=== PATIENT | female | born 1980 | race Caucasian/White ===

== ENCOUNTER 2020-07-16 06:16 | Outpatient (REF) | payer OTHER, SELFPAY ==
[2020-07-16 12:00] LABS: Alanine Aminotransferase 38 U/L (0-31); Albumin Level 4.1 g/dL (3.5-5.0); Alkaline Phosphatase 83 U/L (39-117); Anion Gap 14 (12-20); Aspartate Amino Transferase 25 U/L (5-31); Bilirubin Total 0.5 mg/dL (0.0-1.0); Blood Urea Nitrogen 18 mg/dL (9-16); Calcium 8.2 mg/dL (8.4-10.2); Carbon Dioxide 22 mmol/L (22-29); Chloride 109 mmol/L (96-108); Cholesterol 182 mg/dL; Estimated Glomerular Filt Rate > 60; Glucose Fasting 83 mg/dL (60-99); HDL Cholesterol 46 mg/dL; LDL Cholesterol Calculated 115 mg/dl; Potassium 4.2 mmol/l (3.3-5.1); Sodium 141 mmol/L (135-145); Total Protein 6.8 g/dL (6.5-8.0); Triglycerides 109 mg/dL
[2020-07-16 12:05] LABS: TSH reflex Free T4 1.76 mIU/mL (0.32-4.0)
== END 2020-07-16 06:17 | disposition home or self-care (01) ==
LOC: HO.HMGCLDS 06:16
PROVIDERS: PCP Nurse Practitioner Family; Visit Provider Nurse Practitioner Family
DX: Z00.00 Encounter for general adult medical examination without abnormal findings (principal)
CPT/HCPCS: 80053; 80061; 84443

== ENCOUNTER 2020-07-28 09:28 | Emergency (ER) | payer OTHER, SELFPAY ==
--- NOTE | 2020-07-28 | XR_ITS ---
EXAMINATION: CR CHEST CLINICAL INFORMATION: Chest tightness. COMPARISON: Chest x-ray dated 09/22/2016. TECHNIQUE: AP upright portable view of the chest was obtained. FINDINGS: The cardiomediastinal silhouette is within normal limits in size. Lungs bilaterally are symmetrically expanded and demonstrate diffuse thickening of the central airways and perihilar reticular opacities, suggestive of reactive airways disease or bronchitis. No focal dense consolidation, effusion or pneumothorax is seen. Bony structures are unremarkable. XR/XR chest 1V IMPRESSION: Findings a suggestive of reactive airways disease or bronchitis. No focal dense pneumonia.
[2020-07-28 09:34] VITALS: BP 137/74; PULSE 96; RESP 18; TEMP 37.2; O2SAT 95; BMI 41.1
--- NOTE | 2020-07-28 10:37 | PC.NURSE ---
COVID POS. WALKING O2 SAT 98% ON ROOM AIR PT AWARE OF PLAN OF CARE FOR DC
--- NOTE | 2020-07-28 10:48 | ED_ITS ---
HPI - SOB/Dyspnea General Chief Complaint: Dyspnea Stated Complaint: sob,flu like symptoms Time Seen by Provider: 07/28/20 10:30 Source: patient Mode of arrival: ambulatory History of Present Illness HPI Narrative: 39-year-old female with past medical history of depression, COVID-19 positive 10 days ago presenting to the ED complaining of worsening SOB/chest tightness since Thursday, and productive cough. Denies fever, chills, recent travel, LE edema MD elicited complaint: shortness of breath and cough Related Data Home Medications Medication Instructions Recorded Confirmed escitalopram oxalate 20 mg tablet 20 mg PO DAILY 07/03/20 07/12/20 flu vacc [id number] 6mos up(PF) ml IM 07/12/20 07/12/20 trazodone 50 mg tablet 50 mg PO BEDTIME PRN 07/12/20 07/12/20 Previous Rx's Medication Instructions Recorded albuterol sulfate 2 puff INHALATION Q4-6H PRN #6.7 g 07/28/20 azithromycin See Rx Instructions .ROUTE 07/28/20 .COMPLEX #6 tab prednisone 40 mg PO DAILY 5 Days #10 tab 07/28/20 Allergies Allergy/AdvReac Type Severity Reaction Status Date / Time azithromycin [Azithromycin] Allergy Unknown UNKNOWN, Verified 06/07/20 07:12 severe stomach cramping Soy Allergy Unknown Unknown Uncoded 06/07/20 07:12 Review of Systems Review of Systems: Constitutional: No Weight loss, No Fever, No Chills ENT/Mouth: No Ear Pain, No Nasal Congestion, No Sinus Pain, No Hoarseness, No sore throat Cardiovascular: + Chest tightness, + SOB Respiratory: + Cough, No Sputum, No Wheezing Gastrointestinal: No Nausea, No Vomiting, No Diarrhea, No Constipation, No Abdominal pain Musculoskeletal: No joint pain, No Myalgias, No Joint Swelling Skin: No Skin Lesions, No rash Yes all other systems are reviewed and are negative PMFSH Past Medical History Attestation statement: The following information was validated with the patient. Medical History (Updated 07/28/20 @ 10:53 by KUNAL Bruce) Depression Surgical History History of breast biopsy History of section History of removal of skin mole History of tonsillectomy Social History Social History Alcohol intake: never Smoking Status: Never smoker Smoked in Last 30 Days: No Use of substances other than those prescribed or required for medical reasons: No Advance Directives: No Advance Directives Information Provided: No Physical Exam Vital Signs: Vital Signs: Last Vital Signs Temp 98.9 F 07/28/20 09:34 Pulse 96 07/28/20 09:34 Resp 18 07/28/20 09:34 BP 137/74 07/28/20 09:34 Pulse Ox 95 07/28/20 09:34 Body Mass Index 41.1 Const: General: cooperative and healthy appearing Orientation/consciousness: patient oriented x3 Limitations: no limitations HENMT: Head: Yes normal to inspection Ears: hearing grossly normal bilaterally General nose exam: Normal external nose present Face and sinus: Yes normal facial exam Eyes: General: appearance normal, both eyes and all related structures EOM: EOMs intact bilaterally Neck: Neck: Yes normal visual inspection and Yes no lymphadenopathy Resp: Effort & Inspection: normal respiratory effort Auscultation: clear to auscultation bilaterally, no crackles, no rhonchi and no wheezes Cardio: Rate: regular rate Heart sounds: S1 normal heart sound present and S2 normal heart sound present GI: Inspection: Yes normal to inspection Skin: Rashes: no rashes Wounds: no wounds Neuro: General: patient oriented x3 Gait exam (Neuro): Normal gait present Extrem: General: Yes normal to inspection Course Course Course Narrative: * 1051-CXR suggestive of reactive airway disease or bronchitis. No focal pneumonia. * Patient ambulated with pulse ox in the ED maintaining saturations of 98% on room air * Discussed with patient worrisome signs and symptoms and strict return precautions. Will discharge with Z-Matt, prednisone, and albuterol inhaler MDM - SOB/Dyspnea MDM Narrative Medical decision making narrative: On exam VSS, NAD/well-appearing/nontoxic, lungs CTA. Concern for COVID-19 pneumonia/persistent symptoms. Plan: CXR, ambulated w/ pulse ox Discharge Plan Discharge Clinical Impression: COVID-19 Patient Disposition: Home, Self-Care Instructions: COVID-19 (Coronavirus Disease 2019) (ED) Additional Instructions: Your chest x-ray showed reactive airway disease/bronchitis, but no pneumonia Prednisone as a steroid, take as prescribed Z-Matt is an antibiotic, take as prescribed In addition use albuterol inhaler at home Continue to self isolate Take Tylenol and Motrin at home for fever/body aches If you develop constant worsening shortness breath, chest pain, or fever unresolved medications return to the ED Prescriptions: New prednisone 20 mg tablet 40 mg PO DAILY 5 Days Qty: 10 RF: 0 albuterol sulfate 90 mcg/actuation HFA aerosol inhaler 2 puff inhalation Q4-6H PRN (Reason: shortness of breath or wheezing) Qty: 6.7 RF: 0 azithromycin 250 mg tablet See Rx Instructions .ROUTE .COMPLEX Qty: 6 RF: 0 No Action escitalopram oxalate 20 mg tablet 20 mg PO DAILY RF: 0 Fluzone Quad [id number] (PF) 60 mcg (15 mcg x 4)/0.5 mL syringe IM RF: 0 trazodone 50 mg tablet 50 mg PO BEDTIME PRNRF: 0 Referrals: Antoni Gandara, [facility] [Primary Care Provider] - 3 days
== END 2020-07-28 11:02 | disposition home or self-care (01) ==
PROVIDERS: Emergency Provider Emergency Medicine Emergency Medical Services; PCP Nurse Practitioner Family
DX: U07.1 COVID-19 (principal)
CPT/HCPCS: 71045; 99283; 99284

== ENCOUNTER 2022-06-19 16:51 | Outpatient (REF) | payer OTHER, SELFPAY ==
[2022-06-19 18:19] LABS: Influenza A PCR POSITIVE (Negative); Influenza B PCR NEGATIVE (Negative); Resp Syncy Virus RNA Qual PCR NEGATIVE (Negative); SARS COV2 PCR INHOUSE NEGATIVE (Negative)
== END 2022-06-19 16:52 | disposition home or self-care (01) ==
LOC: HO.LNP 16:51
DX: R05.9 Cough, unspecified (principal); Z20.822 Contact with and (suspected) exposure to COVID-19
CPT/HCPCS: 0241U

== ENCOUNTER 2022-07-29 10:10 | Outpatient (REF) | payer OTHER, SELFPAY ==
--- NOTE | ~2022-07-29 | MM_ITS ---
EXAMINATION: MM SCREENING DIGITAL BREAST TOMOSYNTHESIS, BILATERAL CLINICAL INFORMATION: Screening. Asymptomatic. The lifetime risk of breast cancer based on the Tyrer-Cuzick Model is 19%. Additional annual screening with breast MRI may be of benefit in women with a score of 20% or greater. COMPARISON: Mammography: None TECHNIQUE: Digital breast tomosynthesis is performed in both the craniocaudal and mediolateral oblique views along with computer-aided detection (CAD). Synthesized 2D images are generated from the tomosynthesis. FINDINGS: The breasts are heterogeneously dense, which may obscure small masses (ACR BI-RADS breast composition Category c). Intramammary lymph node is seen within the deep superior aspect of the right breast with no suspicious abnormal dominant mass or suspicious grouping of microcalcifications. Asymmetric density about the deep lateral aspect of the left breast is seen to represent superimposition of fibroglandular tissue on tomosynthesis views. MM/MM tomosynthesis screening BI IMPRESSION: No mammographic evidence of malignancy. ASSESSMENT: BI-RADS 1: Negative RECOMMENDATION: Routine annual mammography screening. This patient's information was entered into a reminder system with a target due date for their next mammogram.
== END 2022-07-29 10:11 | disposition home or self-care (01) ==
LOC: HO.MAMMO 10:10
PROVIDERS: PCP Nurse Practitioner Family; Visit Provider Nurse Practitioner Family
DX: Z12.31 Encounter for screening mammogram for malignant neoplasm of breast (principal)
CPT/HCPCS: 77063; 77067

== ENCOUNTER 2022-07-31 08:33 | Outpatient (REF) | payer OTHER, SELFPAY ==
[2022-07-31 11:14] LABS: MANUAL DIFF FLAG NO
[2022-07-31 11:21] LABS: Basophils Percent Auto 0.7 % (0-2); Eosinophils Absolute Auto 0.2 X10*3/uL (0.0-0.4); Eosinophils Percent Auto 2.9 % (0-4); Hematocrit 40.8 % (37.0-47.0); Hemoglobin 13.6 g/dl (12.0-16.0); Imm Gran Abs Auto 0.04 X10*3/uL (0.00-0.03); Imm Gran Pct Auto 0.7 % (0.0-0.4); Lymphocytes Absolute Auto 2.4 X10*3/uL (1.2-4.9); Lymphocytes Percent Auto 39.6 % (20-40); Mean Corpuscular HGB Conc 33.3 g/dl (31.0-35.0); Mean Corpuscular Hemoglobin 29.2 pg (27.0-33.0); Mean Corpuscular Volume 87.6 fL (80.0-98.0); Monocytes Absolute Auto 0.5 X10*3/uL (0.1-1.2); Monocytes Percent Auto 8.2 % (2-11); Neutrophils Absolute Auto 2.9 x10*3/uL (2.0-8.3); Neutrophils Percent Auto 47.9 % (45-73); Platelet Count 236 X10*3/uL (160-400); Red Blood Count 4.66 X10*6/uL (4.20-5.50); Red Cell Distribution Width 12.9 % (11.0-16.0)
[2022-07-31 12:12] LABS: Alanine Aminotransferase 32 U/L (0-31); Albumin Level 3.9 g/dL (3.5-5.0); Alkaline Phosphatase 77 U/L (39-117); Anion Gap 8 (12-20); Aspartate Amino Transferase 18 U/L (5-31); Bilirubin Total 0.6 mg/dL (0.0-1.0); Blood Urea Nitrogen 17 mg/dL (9-16); Calcium 8.7 mg/dL (8.4-10.2); Carbon Dioxide 26 mmol/L (22-29); Chloride 109 mmol/L (96-108); Cholesterol 176 mg/dL; Estimated Glomerular Filt Rate > 60; Glucose Fasting 103 mg/dL (60-99); HDL Cholesterol 54 mg/dL; LDL Cholesterol Calculated 105 mg/dl; Potassium 3.9 mmol/L (3.3-5.1); Sodium 139 mmol/L (135-145); TSH reflex Free T4 0.95 uIU/mL (0.32-4.0); Total Protein 6.3 g/dL (6.5-8.0); Triglycerides 86 mg/dL
[2022-07-31 16:20] LABS: Appearance Urine Turbid; Color Urine Dark Yellow; Glucose Urine UA Negative (Negative); Leukocyte Esterase Urine Negative (Negative); Nitrite Urine Negative (Negative); PH 5.5 (5.0-9.0); Specific Gravity - Urine 1.025 (1.005-1.025); Urine Blood Negative (Negative); Urine Ketones Trace mg/dL (Negative); Urine Protein Negative (Neg-Trace)
== END 2022-07-31 08:34 | disposition home or self-care (01) ==
LOC: HO.HMGCLDS 08:33
PROVIDERS: PCP Nurse Practitioner Family; Visit Provider Nurse Practitioner Family
DX: Z00.00 Encounter for general adult medical examination without abnormal findings (principal)
CPT/HCPCS: 36415; 80053; 80061; 81003; 84443; 85025

== ENCOUNTER 2023-07-13 11:01 | Outpatient (AMB) | payer OTHER, SELFPAY ==
[2023-07-13 11:50] VITALS: BP 112/70; PULSE 83; TEMP 36.4; O2SAT 98; BMI 35.4
--- NOTE | 2023-07-13 11:50 | AM.OFFWIN_ITS ---
Intake Vital Signs 07/13/23 11:50 Height 5 ft 8 in Weight 105.687 kg BMI 35.4 BP 112/70 Blood Pressure Location Rt brachial Position Sitting Pulse 83 Pulse Source Pulse Oximeter Temp 97.6 F Temp Source Temporal Artery Scan Pulse Oximetry (%) 98 Oxygen Delivery Method Room Air Intake Visit Reasons: EP rash all over body Intake Note: pt is here today for rash all over body started thursday Patient Tobacco Use Status: Never used Tobacco Allergies Soy Allergy (Unknown, Uncoded 07/23/22 16:32) Unknown Do you need a note to return to daycare/school/sports/work: Yes HPI HPI Comments History of Present Illness Details 1156 42 year old female presents w/ concerns of full body rash that started two days ago worsening. She thinks it started after wearing a Will sweater. Now traveling throughout her entire body. It is itchy in some parts. No chest pain, shortness of breath, nausea, vomiting, abdominal pain, headache, vision changes, dizziness and weakness. Physical exam with macular papular rash with some hives throughout body. Airway patent. This is likely allergic reaction versus contact dermatitis. No signs of anaphylaxis. No signs of threat to airway Will discharge with prednisone, Benadryl and epi pens, went over proper use of EpiPen as patient verbalizes understanding. Educated patient on diagnosis and treatment plan, answered all question, patient verbalizes understanding. At this time patient will be discharged home, advised to return with new or worsening symptoms. Educated on worrisome signs and symptoms and when to return. At this time I feel comfortable discharge home. [facility] Medical History Respiratory tract infection due to COVID-19 virus Depression Surgical History History of breast biopsy History of removal of skin mole History of section History of tonsillectomy Family History Father Mental health disorder Sister Mental health disorder Brother Mental health disorder Social History Housing: House Alcohol intake: never Patient Tobacco Use Status: Never used Tobacco e-Cigarette/Vaping Use: Never Used Second Hand Smoke Exposure: No service: No Current occupational status: employed Current occupation: [employer] Current occupational exposures/hazards: Yes Cognitive needs: No Hearing needs: No Vision needs: No Review of Systems Const Details: Constitutional : No Weight loss, No Fever, No Chills, No Fatigue, No Malaise ENT/Mouth : No sore throat, No Rhinorrhea Eyes: No Eye Pain, No Swelling, No Redness Cardiovascular : No Chest Pain, No SOB, No Dyspnea on Exertion, No Orthopnea, No Edema, No Palpitations Respiratory : No Cough, No Sputum, No Wheezing Gastrointestinal : No Nausea, No Vomiting, No Diarrhea, No Constipation, No abdominal Pain, No Hematochezia, No Melena Genitourinary : No Dysuria, No Urinary Frequency, No Hematuria, Musculoskeletal : No joint pain, No Myalgias, No Joint Swelling Skin : No Skin Lesions, + rash Neuro : No Weakness, No Numbness, No Dizziness, No Headache Psych : No Anxiety/Panic, No Depression All other systems reviewed and are negative All systems reviewed & are unremarkable except as noted in HPI and below Physical Exam Vital Signs: Last Vital Signs Temp 97.6 F 07/13/23 11:50 Pulse 83 07/13/23 11:50 BP 112/70 07/13/23 11:50 Pulse Ox 98 07/13/23 11:50 Oxygen Delivery Method Room Air 07/13/23 11:50 BMI result Body Mass Index 35.4 vss Appearance: Alert.? Oriented X3.? No acute distress.? Head: Normocephalic, atraumatic, no step-offs or deformities Eyes: Pupils equal, round and reactive to light.? CVS: Normal heart rate and rhythm.? Pulses normal.? Respiratory: No respiratory distress.? Breath sounds normal.? Abdomen: Soft and nontender.? Skin: Skin warm and dry.? Normal skin color.? Normal skin turgor.? macular papular rash with some hives throughout body. Extremities: No lower extremity edema.? No calf ttp. 5/5 strength to bilateral upper and lower extremities Neuro: Oriented X 3.? No motor deficit.? No sensory deficit. CN 2-12 intact Assessment & Plan Assessment & Plan (1) Rash: Code(s): R21 - Rash and other nonspecific skin eruption Plan Take your medications as prescribed. If you were prescribed antibiotics today, it is important that you take your medication to their entirety, do not skip any doses, do not finish them early. Follow-up with your primary care provider this week. Return to the emergency department with new or worsening symptoms. In case of emergency call 911 Medications: New prednisone 60 mg (3 x 20 mg) PO DAILY 15 tabs 0RF 5 days epinephrine (EpiPen 2-Matt) 0.3 mg (0.3 mL) IM Q4H PRN 2 ea 0RF anaphylaxis Coding Level of Care Code Est Pt Level 3 (36098) Diagnoses Rash R21
== END 2023-07-13 13:56 | disposition home or self-care (01) ==
PROVIDERS: PCP Nurse Practitioner Family; Visit Provider Physician Assistant
DX: R21 Rash and other nonspecific skin eruption (principal)
CPT/HCPCS: 99213

== ENCOUNTER 2023-07-28 15:01 | Outpatient (AMB) | payer OTHER, SELFPAY ==
--- NOTE | 2023-07-28 15:03 | MHC.PC.OV ---
Vital Signs 07/28/23 15:07 Height 5 ft 8 in Weight 233 lb BMI 35.4 BP 120/78 Blood Pressure Location Rt brachial Position Sitting Pulse 83 Pulse Source Pulse Oximeter Pulse Oximetry (%) 99 Oxygen Delivery Method Room Air Intake Visit Reasons: Annual PE Intake Note: Patient here for physical exam and would like to make sure she is doing good as her brother just had a mini stroke. Allergies Soy Allergy (Unknown, Uncoded 07/23/22 16:32) Unknown Medication List - Last Reconciled 07/28/23 by NICOLÁS Zavala epinephrine (EpiPen 2-Matt) 0.3 mg (0.3 mL) IM Q4H PRN escitalopram oxalate 20 mg PO DAILY 90 days flu vacc [id number] 6mos up(PF) mL IM trazodone 50 mg PO BEDTIME PRN 90 days Tobacco use date assessed: 07/28/23 Dental Screening Dental Screen Date: 07/28/23 Did you have a dental visit in the last 12 months?: Yes Did you have a dental problem in the last 6 months where you did not have access to dental care?: No Was dental information given to patient?: Patient has dentist HPI Annual PE HPI Details Pt is here for a PE. Will order labs. Pt will schedule her mammo and pap. Pt recently underwent a gastric sleeve procedure on 06/18. She reports doing well. Pt c/o left knee pain. She does have crepitus as well. Will order XR. She describes more anterior left knee pain. [facility] Medical History (Updated 07/28/23 @ 15:28 by NICOLÁS Zavala) History of gastrectomy Respiratory tract infection due to COVID-19 virus Depression Surgical History (Updated 07/28/23 @ 15:23 by NICOLÁS Zavala) S/P gastric sleeve procedure History of breast biopsy History of removal of skin mole History of section History of tonsillectomy Family History Father Mental health disorder Sister Mental health disorder Brother Mental health disorder Social History Housing: House Alcohol intake: never Patient Tobacco Use Status: Never used Tobacco e-Cigarette/Vaping Use: Never Used Second Hand Smoke Exposure: No service: No Current occupational status: employed Current occupation: [employer] Current occupational exposures/hazards: Yes Cognitive needs: No Hearing needs: No Vision needs: No Questionnaire Thrive Questionnaire Date Thrive assessed: 07/23/22 I am a: Patient What is your living situation today?: I have a steady place to live Within the past 12 months, did the food you bought not last and you didn't have the money to get more?: Never true Within the past 12 months, did you worry whether your food would run out before you got money to buy more?: Never true AUDIT C Alcohol Use Questionnaire (AUDIT-C) 1. How often do you have a drink containing alcohol?: Monthly or less 2. How many drinks containing alcohol do you have on a typical day when you are drinking?: 1 or 2 3. How often do you have six or more drinks on one occasion?: Never Total Score: 1 Score Reviewed/Action Taken: No NATASHA-7 AMB Questionnaire NATASHA-7 Date NATASHA - 7 assessed: 07/23/22 Feeling nervous, anxious, or on edge: 0 = Not at all Not being able to stop or control worryin = Several days Worrying too much about different things: 1 = Several days Trouble relaxin = Several days Being so restless that it is hard to sit still: 0 = Not at all Becoming easily annoyed or irritable: 1 = Several days Feeling afraid as if something awful might happen: 0 = Not at all Total NATASHA-7 score (0-4 normal; 5-9 mild; 10-14 moderate; 15-21 severe): 4 Source: Developed by Drs. Matthew Marley, Dorothy Wright, Jasbir Schofield and colleagues, with an educational ciaran from [employer]. Review of Systems Const Denies chills and Denies fever(s) Eyes Denies blurry vision ENT Denies vertigo, Denies dizziness and Denies sore throat Card Denies chest pain at rest, Denies chest pain with activity, Denies diaphoresis, Denies dyspnea and Denies dyspnea on exertion Resp Denies cough, Denies dyspnea, Denies dyspnea on exertion and Denies wheezing GI Denies abdominal pain, Denies melena, Denies hematochezia, Denies constipation, Denies diarrhea and Denies loose stools Denies hematuria Musc Denies numbness and Denies tingling Skin/Breast Denies lesions Neuro Denies vertigo, Denies dizziness, Denies numbness and Denies tingling Psych Denies anxiety, Denies depression, Denies homicidal ideation, Denies suicidal ideation and Denies other (substance abuse) Aller/Immun Denies wheezing Physical exam (Primary Care) Vital Signs: Last Vital Signs Pulse 83 07/28/23 15:07 BP 120/78 07/28/23 15:07 Pulse Ox 99 07/28/23 15:07 Oxygen Delivery Method Room Air 07/28/23 15:07 BMI result Body Mass Index 35.4 Tobacco/Smoking Status: Tobacco use Status Tobacco use date assessed 07/28/23 07/28/23 15:12 Patient Tobacco Use Status Never used Tobacco 07/28/23 15:06 e-Cigarette/Vaping Use Never Used 07/28/23 15:06 Thrive Assessment: Date of Thrive Assessment Date Thrive assessed 07/23/22 07/28/23 15:06 Const General: cooperative Nutritional Appearance: obese Orientation/consciousness: patient oriented x3 HENMT Head: Yes normal to inspection, Yes normocephalic and Yes atraumatic Ears: TM's normal bilaterally Eyes General: appearance normal, both eyes and all related structures Alignment and Position: alignment normal and position normal Neck Neck: Yes normal visual inspection and Yes no lymphadenopathy Thyroid: Thyroid normal Resp Effort & Inspection: normal respiratory effort Auscultation: clear to auscultation bilaterally Cardio Rate: regular rate Rhythm: regular rhythm Heart sounds: S1 normal heart sound present, S2 normal heart sound present and no murmurs GI Palpation (GI): Soft to palpation and nontender Auscultation: normal bowel sounds Skin Other: 5 lap sites to abdomen, no signs of infection, healed Rashes: no rashes Neuro General: patient oriented x3, moves all extremities, no focal motor deficits and deep tendon reflexes 2+ bilaterally Romberg Test: Negative Psych Appearance: grossly normal Mental Status: mental status grossly normal Speech and movement: Normal speech and movement present Affect: normal affect Attitude: cooperative Thought process: Normal thought process present Thought content: Normal thought content present Insight: Good insight present (Psych) Judgement: Good judgement present (Psych) Assessment and Plan Assessment & Plan (1) Physical exam: Code(s): Z00.00 - Encounter for general adult medical examination without abnormal findings Plan: Labs ordered (2) Left knee pain: Code(s): M25.562 - Pain in left knee Plan: XR ordered Plan The patient agreed to the use of a emergency medical tech for this encounter. Scribed for GILBERTO Manzanares-IVONNE by Nuvia Nunez emergency medical tech, on 07/28/2023 at 15:20 EST. Orders: Orders Complete Blood Count Auto Diff Today Z00.00 - Encounter for general adult medical examination without abnormal findings Comprehensive [place]. Panel Fast Today Z00.00 - Encounter for general adult medical examination without abnormal findings TSH reflex Free T4 Today Z00.00 - Encounter for general adult medical examination without abnormal findings UA CC w/rflx Micro + Cult Today Z00.00 - Encounter for general adult medical examination without abnormal findings Lipid Panel Today Z00.00 - Encounter for general adult medical examination without abnormal findings MM screening mammo BI Today Z12.31 - Encounter for screening mammogram for malignant neoplasm of breast XR knee LT 2V Today M25.562 - Pain in left knee Coding Level of Care Code Est Pt Prev Care 40-64y(72015) Diagnoses Physical exam Z00.00 Left knee pain M25.562
[2023-07-28 15:07] VITALS: BP 120/78; PULSE 83; O2SAT 99; BMI 35.4
== END 2023-07-28 15:41 | disposition home or self-care (01) ==
PROVIDERS: Visit Provider Nurse Practitioner Family
DX: Z00.00 Encounter for general adult medical examination without abnormal findings (principal); M25.562 Pain in left knee
CPT/HCPCS: 99396

== ENCOUNTER 2023-07-30 10:37 | Outpatient (REF) | payer OTHER, SELFPAY ==
--- NOTE | ~2023-07-30 | XR_ITS ---
EXAMINATION: XR KNEE, LEFT CLINICAL INFORMATION: Left knee pain COMPARISON: 08/02/2019 TECHNIQUE: Four views of the left knee. FINDINGS: No joint effusion, fracture, dislocation or destructive process. Mild medial joint space narrowing observed but this is unchanged. XR/XR knee LT 4V IMPRESSION: Stable chronic change with mild medial joint space narrowing. No acute abnormalities.
[2023-07-30 13:35] LABS: MANUAL DIFF FLAG NO
[2023-07-30 13:46] LABS: Basophils Percent Auto 0.9 % (0-2); Eosinophils Absolute Auto 0.1 X10*3/uL (0.0-0.4); Eosinophils Percent Auto 2.1 % (0-4); Hematocrit 39.7 % (37.0-47.0); Hemoglobin 13.3 g/dl (12.0-16.0); Imm Gran Abs Auto 0.02 X10*3/uL (0.00-0.03); Imm Gran Pct Auto 0.4 % (0.0-0.4); Lymphocytes Absolute Auto 1.8 X10*3/uL (1.2-4.9); Lymphocytes Percent Auto 39.4 % (20-40); Mean Corpuscular HGB Conc 33.5 g/dl (31.0-35.0); Mean Corpuscular Hemoglobin 29.9 pg (27.0-33.0); Mean Corpuscular Volume 89.2 fL (80.0-98.0); Mean Platelet Volume 11.3 fL (9.4-12.3); Monocytes Absolute Auto 0.5 X10*3/uL (0.1-1.2); Monocytes Percent Auto 9.9 % (2-11); Neutrophils Absolute Auto 2.2 x10*3/uL (2.0-8.3); Neutrophils Percent Auto 47.3 % (45-73); Platelet Count 218 X10*3/uL (160-400); Red Blood Count 4.45 X10*6/uL (4.20-5.50); Red Cell Distribution Width 14.3 % (11.0-16.0); White Blood Count 4.7 X10*3/uL (4.8-10.8)
[2023-07-30 14:16] LABS: Alanine Aminotransferase 48 U/L (0-31); Albumin Level 3.6 g/dL (3.5-5.0); Alkaline Phosphatase 62 U/L (39-117); Anion Gap 12 (12-20); Aspartate Amino Transferase 35 U/L (5-31); Bilirubin Total 0.8 mg/dL (0.0-1.0); Blood Urea Nitrogen 13 mg/dL (9-16); Carbon Dioxide 25 mmol/L (22-29); Chloride 109 mmol/L (96-108); Cholesterol 151 mg/dL (<200); Estimated Glomerular Filt Rate > 60; Glucose Fasting 80 mg/dL (60-99); HDL Cholesterol 42 mg/dL (>40); LDL Cholesterol Calculated 91 mg/dL (<100); Potassium 3.6 mmol/L (3.3-5.1); Sodium 142 mmol/L (135-145); Total Protein 6.4 g/dL (6.5-8.0); Triglycerides 94 mg/dL (<150)
[2023-07-30 14:21] LABS: TSH reflex Free T4 1.07 uIU/mL (0.32-4.0)
== END 2023-07-30 10:38 | disposition home or self-care (01) ==
LOC: HO.HMGCLDS 10:37
PROVIDERS: PCP Nurse Practitioner Family; Visit Provider Nurse Practitioner Family
DX: M25.562 Pain in left knee (principal); Z00.00 Encounter for general adult medical examination without abnormal findings
CPT/HCPCS: 36415; 73564; 80053; 80061; 84443; 85025

== ENCOUNTER 2023-08-08 07:44 | Outpatient (REF) | payer OTHER, SELFPAY | END 2023-08-08 07:45 | disposition home or self-care (01) | LOC: HO.MAMMO 07:44 | PROVIDERS: PCP Nurse Practitioner Family; Visit Provider Nurse Practitioner Family | DX: Z12.31 Encounter for screening mammogram for malignant neoplasm of breast (principal) | CPT/HCPCS: 77063; 77067 ==

== ENCOUNTER → 2023-08-08 07:45 | Outpatient (BNV) | payer OTHER, SELFPAY | PROVIDERS: PCP Nurse Practitioner Family; Visit Provider Radiology Diagnostic Radiology | DX: Z12.31 Encounter for screening mammogram for malignant neoplasm of breast (principal) | CPT/HCPCS: 77063; 77067 ==

== ENCOUNTER 2023-08-20 08:30 | Outpatient (REF) | payer OTHER, SELFPAY ==
--- NOTE | ~2023-08-20 | US_ITS ---
EXAMINATION: US ABDOMEN COMPLETE CLINICAL INFORMATION: Elevated liver enzymes. COMPARISON: US abdomen complete with liver elastography 09/22/2016. TECHNIQUE: Real-time imaging of the abdominal viscera. FINDINGS: PANCREAS: Normal. ABDOMINAL AORTA: The proximal, mid, and distal segments are normal in caliber. INFERIOR VENA CAVA: Visualized portions are normal. LIVER: The liver is normal in size. The liver contour is normal. Mildly increased hepatic echogenicity which can be seen in the setting of hepatic steatosis or underlying liver disease. No focal hepatic lesion. There is no intrahepatic biliary duct dilatation seen. GALLBLADDER: Normal. The gallbladder is physiologically distended without evidence of stones, sludge, polyps, wall thickening or pericholecystic fluid. COMMON BILE DUCT: Normal in caliber measuring 0.6 cm in diameter. RIGHT KIDNEY: Normal. No hydronephrosis. No renal calculi or focal parenchymal lesions. The kidney measures 10.9 cm in maximum dimension. LEFT KIDNEY: Normal. No hydronephrosis. No renal calculi or focal parenchymal lesions. The kidney measures 10.1 cm in maximum dimension. SPLEEN: Normal. The spleen measures 11.8 cm in maximum dimension. FREE FLUID: None. US/US abdomen complete IMPRESSION: Mildly increased hepatic echogenicity which can be seen in the setting of hepatic steatosis or underlying liver disease.
== END 2023-08-20 08:31 | disposition home or self-care (01) ==
LOC: HO.HMGCX 08:30
PROVIDERS: PCP Nurse Practitioner Family; Visit Provider Nurse Practitioner Family
DX: R74.8 Abnormal levels of other serum enzymes (principal)
CPT/HCPCS: 76700

== ENCOUNTER 2023-10-01 15:00 | Outpatient (RCR) | payer OTHER, SELFPAY ==
--- NOTE | 2023-08-20 12:00 | MHC.PT.EP ---
[facility] [place] Office [place] Office [place] Office [address] Bayron Patel [address] [phone] F: [phone] F: [phone] F: [phone] F: [phone] Physical Therapy Plan of Care Date of Evaluation: 08/20/23 Date of Surgery: n/a Diagnosis: pain in L knee Assessment: Patient is a 42 year old female presenting to PT with complaints of pain in her L knee. Pt reports onset of pain began a couple years ago shortly after skiing. She presents today with impairments in pain, knee strength, hip strength, quad muscle length, gastroc length. 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 Pt expresses shelter goal of reducing pain, and is motivated to work towards this in PT. Clinical presentation today is most consistent with signs and sx associated with L knee pain and pt will benefit from skilled PT 2 week x 4 weeks to address the following problems and impairments noted upon evaluation: pain, knee strength, hip strength, quad muscle length, gastroc length. These problems limit the patient with the following functional activities: squatting, stair negotiation, exercise. The prescribed treatment plan of care is medically necessary. Co-morbidities of none were identified and taken into considerations of plan of care. Pt was educated on HEP, role of PT, prognosis, POC. Frequency and Duration: The patient will be seen 2 x week x 4 weeks Short Term Goals: Pt will demonstrate 5/5 knee strength on L. Pt will demonstrate improved hip MMT strength by 1/3 grade in 2 weeks. Pt will demonstrate decreased quad tissue density and tightness in 2 weeks. Eyewear Consultant Goals: Pt will demonstrate improved LEFI score by 9 points in 4 weeks for improved functional mobility. Pt will demonstrate ability to descend stairs with in to no pain in 4 weeks for improved access to her home and community. Pt will demonstrate ability to squat with min to no pain in 4 weeks for improved tolerance to work and return to PLOF. Treatment Plan: Modalities to reduce pain, spasms and effusion. Manual therapy to restore motion and function. Therapeutic exercise to improve strength and flexibility. Neuromuscular re-education for posture and balance. Therapeutic activities to return to functional activities of daily living. Electronically signed by: Jeannie Perez, PT, DPT, ATC Please sign and return to therapist. Thank you for your referral.
--- NOTE | 2023-11-02 08:05 | MHC.PT.DC ---
[facility] [place] [facility] [place] Office [place] Office [address] [phone] F: [phone] F: [phone] F: [phone] F: [phone] Physical Therapy Discharge Report Diagnosis: pain in L knee Date of Surgery: n/a Date of Evaluation: 08/20/23 Date of Discharge: 11/02/23 Treatments to Date: 5 Cancellations to Date: 3 No Shows to Date: 0 Discharge Status: Patient Elected to Stop Discharge Summary: Pt has not attended skilled PT in >30 days and therefore to be d/c per policy. Electronically signed by: Jeannie Perez, PT, DPT, ATC Please sign and return to therapist. Thank you for your referral.
== END 2023-11-02 08:05 | disposition home or self-care (01) ==
LOC: HO.PTCHIC 15:00
PROVIDERS: PCP Nurse Practitioner Family; Visit Provider Nurse Practitioner Family
DX: M25.562 Pain in left knee (principal)
CPT/HCPCS: 97110; 97140; 97161

== ENCOUNTER 2024-01-21 14:51 | Outpatient (AMB) | payer OTHER, SELFPAY ==
[2024-01-21 15:13] VITALS: BMI 29.0
--- NOTE | 2024-01-21 15:13 | A.OFFVIS_ITS ---
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 Patient reports that she was seen with [facility] who states that she should stop going to the and offered NSAID which she cannot take due to bariatric surgery. She explains that she is having pain with weight bearking flexion such as squatting, she recently had an increase of pain in the posterior aspect of the knees. History of physical therapy with no relief. When she works out she is wearing a compression sleeve. She is a very active since her surgery as she is trying to live a healthier and mor active lifestyle so stopping working out or acitivy is not an option. 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 She has seen a PA at [facility] who recommended activity modification and , Rodrigo states, diagnosed with with PF OA. She is active and has bariatric surgery and lost 75 lbs and works out regularly at a gym. She participates in activity classes that include a lot of squatting and bending and jumping. She has to modify her activities regularly as these lunge- type motions bother her left anterior knee. She has done PT but it has not been helpful. She want to continue her gym activities. She participates in strong man competitions. [facility] Medical History (Updated 01/22/24 @ 06:44 by Emir Hampton MD) Fatty liver History of gastrectomy Respiratory tract infection due to COVID-19 virus Depression Surgical History (Updated 07/28/23 @ 15:23 by GILBERTO Zavala-) S/P gastric sleeve procedure History of breast biopsy History of removal of skin mole History of section History of tonsillectomy Family History Father Mental health disorder Sister Mental health disorder Brother Mental health disorder Social History (Updated 01/21/24 @ 15:19 by Cary Forde [facility]) Housing: House Alcohol intake: never Patient Tobacco Use Status: Never used Tobacco e-Cigarette/Vaping Use: Never Used Second Hand Smoke Exposure: No service: No Current occupational status: employed 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 Current occupational exposures/hazards: Yes Cognitive needs: No Hearing needs: No Vision needs: No Physical Exam Vital Signs: BMI result Body Mass Index 29.0 Extrem Other: left ID pain with step down, grind and ttp lateral retropatellar facet small Roman's cyst Assessment & Plan Assessment & Plan (1) Osteoarthritis of right patellofemoral joint: Code(s): M17.11 - Unilateral primary osteoarthritis, right knee Category: Medical Plan: Moderate PF OA left knee. We had a long discussion about strengthening and exercise and sqautting. She participates in crossfit type activity and I recommend focusing more on external roation and gluteal activation while sqautting. A referral was made to PT here at [facility] and that she visit with Chrystal to focus on changing her mechanics and function KTaping. Orders: Orders PT Evaluation and Treatment Today M17.11 - Unilateral primary osteoarthritis, right knee Coding Level of Care Code New Pt Level 4 (57984) Diagnoses Osteoarthritis of right patellofemoral joint M17.11 Time Spent (min) 45
== END 2024-01-21 16:08 | disposition home or self-care (01) ==
LOC: HO.HOS 14:51
PROVIDERS: PCP Nurse Practitioner Family; Visit Provider Orthopaedic Surgery
DX: M17.12 Unilateral primary osteoarthritis, left knee (principal)
CPT/HCPCS: 99203

== ENCOUNTER → 2024-01-21 14:51 | Outpatient (BNVA) | payer OTHER, SELFPAY | PROVIDERS: PCP Nurse Practitioner Family; Visit Provider Orthopaedic Surgery ==

== ENCOUNTER 2024-08-13 07:18 | Outpatient (REF) | payer OTHER, SELFPAY | END 2024-08-13 07:19 | disposition home or self-care (01) | LOC: HO.MAMMO 07:18 | PROVIDERS: PCP Nurse Practitioner Family; Visit Provider Nurse Practitioner Family | DX: Z12.31 Encounter for screening mammogram for malignant neoplasm of breast (principal) | CPT/HCPCS: 77063; 77067 ==

== ENCOUNTER → 2024-08-13 07:30 | Outpatient (BNV) | payer OTHER, SELFPAY | PROVIDERS: PCP Nurse Practitioner Family; Visit Provider Internal Medicine | DX: Z12.31 Encounter for screening mammogram for malignant neoplasm of breast (principal) | CPT/HCPCS: 77063; 77067 ==

== ENCOUNTER 2024-08-16 16:08 | Outpatient (AMB) | payer OTHER, SELFPAY ==
[2024-08-16 16:09] VITALS: BP 120/80; PULSE 78; O2SAT 98; BMI 28.7
--- NOTE | 2024-08-16 16:09 | A.OFFPC_ITS ---
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: No Accompanied by: Self / Same As Patient Allergies NSAIDS (Non-Steroidal Anti-Inflamma Adverse Reaction (Verified 08/16/24 16:09) other Soy Allergy (Unknown, Uncoded 07/23/22 16:32) Unknown Medication List - Last Reconciled 08/16/24 by MOISÉS ZavalaP- epinephrine (EpiPen 2-Matt) 0.3 mg (0.3 mL) IM Q4H PRN escitalopram oxalate 20 mg PO DAILY 90 days trazodone 50 mg PO BEDTIME PRN 90 days Tobacco use date assessed: 08/16/24 Dental Screening Dental Screen Date: 08/16/24 Did you have a dental visit in the last 12 months?: Yes Did you have a dental problem in the last 6 months where you did not have access to dental care?: No Was dental information given to patient?: Patient has dentist HPI PE HPI Details History of Present Illness The patient is a 43-year-old female presenting with concern for her left knee. She reports chronic medial knee pain, which has progressively worsened. The patient twisted her left knee last week while descending stairs. She previously underwent X-ray examination, which showed chronic osteoarthritic changes with mild medial joint space narrowing but without acute abnormalities. The patient participated in physical therapy but did not experience improvement. The knee pain has been exacerbated by the recent twisting injury. She has experienced no associated swelling or redness but positive Massiel test results. Her medical history includes bariatric surgery conducted in June of 2023, after which she has experienced significant weight loss and engaged in regular exercise and a balanced diet. There are no reports of recent fevers, chills, or chest discomfort. Health Maintenance - Regular exercise participation - Adherence to a balanced diet - Weight management post-bariatric surge ry - Recent knee X-rays without acute doherty es -mammo is up to date, and pt has a residential aide f or paps Social History - Engages in regular physical activity a t the gym - Nutritional intake is monitored, adher ing to a balanced diet Review of Systems - General: Denies fevers or chills - Respiratory: Denies shortness of breat h - Cardiovascular: Denies chest pain - Neurological: Denies numbness or tingl ing - Psychiatric: Denies anxiety or depress ion; denies suicidal and homicidal ideation Physical Exam General: Cooperative, healthy appearing, comfortable, no acute distress and well developed Orientation: Patient oriented x3 Limitations: No limitations Head: Normal to inspection Ears: Hearing grossly normal bilaterally Nose: Normal external nose present Face and sinus: Normal facial exam Eyes: Appearance normal, both eyes and all related structures Neck: Normal visual inspection and Yes full ROM Respiratory: Normal respiratory effort and able to speak in complete sentences. Clear to auscultation bilaterally Cardiovascular: Regular rate and rhythm. Normal S1 and S2 GI: Normal to inspection. Soft to palpation and nontender Skin: No rashes or lesions noted Neuro: Patient oriented x3 Extremities: Tenderness in the medial left knee with extension and flexion. Positive Massiel's test, negative Michell's test. No active swelling or redness noted. Normal to inspection otherwise. Results - X-ray: Chronic osteoarthritic changes with mild medial joint space narrowing in the left knee; no acute abnormalities. Plan - Order MRI of the left knee to assess f or meniscal pathology. - Continue monitoring of the left knee f or any changes in symptoms. - Consider further orthopedic evaluation if MRI confirms significant findings. Patient was informed and verbally consented to the use of an ambient scribe for clinic note documentation during this visit. Discussion Notes I discussed with the patient the likelihood of a meniscal injury given her recent positive Massiel sign and the history of injury. The indicated plan is to obtain an MRI to further evaluate the structure of the knee, specifically to identify any tear that might not be visible on X-ray imaging. We explored the potential need for further orthopedic consultation depending on the MRI results. The risks and benefits of obtaining the MRI were discussed, and the patient understands the importance of accurate diagnosis. She is advised to monitor her knee symptoms and report any changes or escalation in pain. Patient Instructions - Follow up with an MRI appointment as s cheduled - Monitor knee for changes, including an y pain, swelling, or instability - Continue with low-impact activities as tolerated - Return to the clinic if symptoms worse n or new symptoms develop [facility] Medical History Fatty liver History of gastrectomy Respiratory tract infection due to COVID-19 virus Depression Surgical History S/P gastric sleeve procedure History of breast biopsy History of removal of skin mole History of section History of tonsillectomy Family History Father Mental health disorder Sister Mental health disorder Brother Mental health disorder Social History Housing: House Alcohol intake: never Patient Tobacco Use Status: Never used Tobacco e-Cigarette/Vaping Use: Never Used Second Hand Smoke Exposure: No service: No Current occupational status: employed 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 1. Little interest or pleasure in doing things: not at all 2. Feeling down, depressed, or hopeless: not at all 3. Trouble falling or staying asleep, or sleeping too much: not at all 4. Feeling tired or having little energy: several days 5. Poor appetite or overeating: not at all 6. Feeling bad about yourself - or that you are a failure or have let yourself or your family down: not at all 7. Trouble concentrating on things, such as reading the newspaper or watching television: not at all 8. Moving or speaking so slowly that other people could have noticed. Or the opposite - being so fidgety or restless that you have been moving around a lot more than usual: not at all 9. Thoughts that you would be better off or of hurting yourself in some way: not at all Total score: 1 Depression Screening Interpretation: Negative Depression Screening Done: Yes 03268 - PHQ-9 Billing: Yes Source: Developed by Drs. Matthew Marley, Dorothy Wright, Jasbir Schofield and colleagues, with an educational ciaran from [employer]. Thrive Questionnaire Date Thrive assessed: 08/16/24 I am a: Patient What is your living situation today?: I have a steady place to live Within the past 12 months, did the food you bought not last and you didn't have the money to get more?: Never true Within the past 12 months, did you worry whether your food would run out before you got money to buy more?: Never true Do you have trouble paying for medicines?: No Do you have trouble getting transportation to medical appointments?: No Do you have trouble taking care of your child, family member or friend?: No Do you have trouble with day-to-day activities such as bathing, preparing meals, shopping, managing finances, etc.?: No Are you currently unemployed and looking for a job?: No Are you interested in more education?: No Please select the resources that you would like help with: None Currently or been in a relationship where the following occur: No concerns reported THRIVE Score: 0 AUDIT C Alcohol Use Questionnaire (AUDIT-C) 1. How often do you have a drink containing alcohol?: Monthly or less 2. How many drinks containing alcohol do you have on a typical day when you are drinking?: 1 or 2 3. How often do you have six or more drinks on one occasion?: Never Total Score: 1 Score Reviewed/Action Taken: Yes NATASHA-7 AMB Questionnaire NATASHA-7 Date NATASHA - 7 assessed: 08/16/24 Feeling nervous, anxious, or on edge: 1 = Several days Not being able to stop or control worryin = Several days Worrying too much about different things: 1 = Several days Trouble relaxin = Several days Being so restless that it is hard to sit still: 1 = Several days Becoming easily annoyed or irritable: 1 = Several days Feeling afraid as if something awful might happen: 0 = Not at all Total NATASHA-7 score (0-4 normal; 5-9 mild; 10-14 moderate; 15-21 severe): 6 Source: Developed by Drs. Matthew Marley, Dorothy Wright, Jasbir Schofield and colleagues, with an educational ciaran from [employer]. NATASHA-7 Assessment Billing NATASHA-7 Assessment Tool: NATASHA-7 Assessment 30222 Physical exam (Primary Care) Vital Signs: Last Vital Signs Pulse 78 08/16/24 16:09 BP 120/80 08/16/24 16:09 Pulse Ox 98 08/16/24 16:09 BMI result Body Mass Index 28.7 Tobacco/Smoking Status: Tobacco use Status Tobacco use date assessed 08/16/24 08/16/24 16:10 Patient Tobacco Use Status Never used Tobacco 08/16/24 16:10 e-Cigarette/Vaping Use Never Used 08/16/24 16:10 PHQ-9: PHQ-9 Score PHQ-9: Total score 1 08/16/24 16:18 Depression Screening Interpretation: Negative Thrive Assessment: Date of Thrive Assessment Date Thrive assessed 08/16/24 08/16/24 16:10 Currently or been in a relationship where the following occur: No concerns reported Coding Level of Care Code Est Pt Prev Care 40-64y(59325) Diagnoses Physical exam Z00.00 Chronic pain of left knee M25.562; G89.29 Additional Codes NATASHA-7 Assessment Billing - NATASHA-7 Assessment Tool: NATASHA-7 Assessment 24590 ([id number]) PHQ-9 - 04647 - PHQ-9 Billing: Yes ([id number]) Assessment & Plan Assessment & Plan (1) Physical exam: Code(s): Z00.00 - Encounter for general adult medical examination without abnormal findings Category: Medical (2) Chronic pain of left knee: Code(s): M25.562 - Pain in left knee; G89.29 - Other chronic pain Category: Medical Plan . Orders: Orders Comprehensive [place]. Panel Fast Today Z00.00 - Encounter for general adult medical examination without abnormal findings UA CC w/rflx Micro + Cult Today Z00.00 - Encounter for general adult medical examination without abnormal findings Complete Blood Count Auto Diff Today Z00.00 - Encounter for general adult medical examination without abnormal findings TSH reflex Free T4 Today Z00.00 - Encounter for general adult medical examination without abnormal findings Lipid Panel Today Z00.00 - Encounter for general adult medical examination without abnormal findings MR knee LT wo con Today G89.29 - Other chronic pain, M25.562 - Pain in left knee Medications: New clotrimazole-betamethasone 1-0.05 % 1 appl topical BID 2 weeks 15 grams 0RF
--- OUTSIDE RECORDS SUMMARY | 2024-08-16 18:06 | XMS_ITS ---
Author Organization [facility] Address [address] [place] [address] Care Team Providers Care Boomswing Operator Name Role Phone Antoni Yung Primary Care Provider Unav ailable Black, Cady Unavailable [phone] Alma Duarte Unavailable [phone] Encounters Encounter Location Date Provider Diagnosis [facility] [address] [place] [address] 08/07/2023 Alma Duarte Plan Of Treatment No Information Progress Notes * Rodrigo ALMODOVAR LDOB:1980 (43 yo F)Acc No.[id number]:08/07/2023 Progress Notes Patient:?BUSTER Rodrigo Brasher Provider:?Alma Duarte DPM :1980???Age:42 Y???Sex:Female D ate:08/07/2023 Address:[address] [place] Pcp:JAIR Manzanares Subjective: * Chief Complaints: * ??? * Medical History:? Objective: * Vitals:? Assessment: Plan: * Treatment: * Images: * The named appointment provid er may or may not be the originator of this progress note, and it is not deemed complete until electronically signed by the appointment provider. Sign off status: Pending * Provider:?Alma Duarte DPM Date:?12/2023 Generated for Gladysi danae/Carline/eTransmitting on:?08/16/2024 06:06 PM EST
--- OUTSIDE RECORDS SUMMARY | 2024-08-16 18:07 | XMS_ITS ---
Author Organization [facility] Address [address] [place] [address] Care Team Providers Care Field Applications Specialist Name Role Phone Antoni Yung Primary Care Provider Unav ailable Black, Cady Unavailable [phone] Alma Duarte Unavailable [phone] Encounters Encounter Location Date Provider Diagnosis [facility] [address] [place] [address] 07/17/2023 Alma Duarte Plan Of Treatment No Information Progress Notes * Rodrigo ALMODOVAR LDOB:1980 (43 yo F)Acc No.[id number]:07/17/2023 Progress Notes Patient:?BUSTER Rodrigo Brasher Provider:?Alma Duarte DPM :1980???Age:42 Y???Sex:Female D ate:07/17/2023 Address:[address] [place] Pcp:JAIR Manzanares Subjective: * Chief Complaints: * ??? * Medical History:? Objective: * Vitals:? Assessment: Plan: * Treatment: * Images: * The named appointment provid er may or may not be the originator of this progress note, and it is not deemed complete until electronically signed by the appointment provider. Sign off status: Pending * Provider:?Alma Duarte DPM Date:? Generated for Printi ng/Faadrianneg/eTransmitting on:?08/16/2024 06:06 PM EST
--- OUTSIDE RECORDS SUMMARY | 2024-08-16 18:07 | XMS_ITS ---
Author Organization [facility] Address [address] [place] [address] Care Team Providers Care Disk Sharpener Name Role Phone Antoni Yung Primary Care Provider Unav ailable Black, Cady Unavailable [phone] REASON FOR VISIT Reschedule Encounters Encounter Location Date Provider Diagnosis [facility] [address] [place] [address] 08/05/2023 Cady Black Plan Of Treatment No Information Progress Notes * Rodrigo ALMODOVAR LDOB:1980 (42 yo F)Acc No.[id number]:08/05/2023 Patient:?Rodrigo Almodovar :1980???Age:42 Y???Sex:Female Address:[address], [place] [address] * true * Date:? Generated for Printi ng/Faadrianneg/eTransmitting on:?08/16/2024 06:06 PM EST
--- OUTSIDE RECORDS SUMMARY | 2024-08-16 18:07 | XMS_ITS | Patient Health Record ---
Author Organization [facility] Address [address] [place] [address] Care Team Providers Care Crop Picker Name Role Phone Antoni Yung Primary Care Provider Unav ailable Black, Cady Unavailable [phone] Allergies Allergen (clinical drug ingredient) Drug/Non Drug Allergy documented on EMR Reaction Allergy Type Onset Date Status erythromycin Erythromycin Unknown Drug Allergy A ctive Adhesive Unknown Allergy Active Reason For Referral No Information Medications Medication SIG (Take, Route, Frequency, Duration) Notes Start Date End Date Status Citalopram & Diet Manage Prod 10 MG as directed Orally Not-Takin g traZODone HCl 50 MG TAKE 1 TABLET BY AASHISH TH AT BEDTIME NEEDED FOR INSOMNIA. Oral for 90 Days Active Feldene 20 MG 1 capsule with food Orally Once a day for 30 day(s) Not-Taking dexAMETHasone 4 MG 1 tablet Orally Once a day for 30 day(s) Not-Taking Escitalopram Oxalate 20 MG TAKE 1 TABLET BY MOUTH DAILY. Oral for 90 Days Active Feldene 20 MG 1 capsule with food Orally Once a day for 30 day(s) 06/01/2023 Active Night Splint AFO - L1930 1 wear at rest for 30 days Active Social History Tobacco Use: Social History Observation Description Date Details (start date - stop date) Never Smoker NA - NA Tobacco Use/Smoking Question Answer Notes Are you a: nonsmoker Additional Findings: Tobacco Non-User Current no n-smoker Alcohol Screen Question Answer Notes Did you have a drink containing alcohol in the p ast year? Yes Points 0 Interpretation Negative Tobacco use other than smoking: Question Answer Notes Are you an other tobacco user? No Plan Of Treatment Pending Test Test Name Order Date X ray : Foot, right 3V 06/01/2023 Insurance Providers Payer Name Payer Address Payer Phone Subscriber Number Group Number Insured Name Patient Relationship to Insured Coverage Start Date Coverage End Date [place] [address] [place] [id number] Rodrigo Almodovar Self - patient is the insured Medical (General) History Medical History History ICD Code psoriasis/eczema chicken pox depression Anxiety Back,Hip,and Knee pain covid-19 Surgical History Surgery Date(Month/Year) 02/01/2013 hysterectomy 12/12/2020
== END 2024-08-16 17:00 | disposition home or self-care (01) ==
LOC: HO.HMCC 16:08
PROVIDERS: PCP Nurse Practitioner Family; Visit Provider Nurse Practitioner Family
DX: Z00.00 Encounter for general adult medical examination without abnormal findings (principal); M25.562 Pain in left knee; G89.29 Other chronic pain

== ENCOUNTER → 2024-08-16 16:08 | Outpatient (BNVA) | payer OTHER, SELFPAY | PROVIDERS: PCP Nurse Practitioner Family; Visit Provider Nurse Practitioner Family | DX: Z00.00 Encounter for general adult medical examination without abnormal findings (principal); G89.29 Other chronic pain; M25.562 Pain in left knee | CPT/HCPCS: 96127 ==

== ENCOUNTER → 2024-08-31 08:00 | Outpatient (BNV) | payer OTHER, SELFPAY | PROVIDERS: PCP Nurse Practitioner Family; Visit Provider Radiology Diagnostic Radiology | DX: M22.2X2 Patellofemoral disorders, left knee (principal) | CPT/HCPCS: 73721 ==

== ENCOUNTER 2024-08-31 08:11 | Outpatient (REF) | payer OTHER, SELFPAY ==
--- NOTE | ~2024-08-31 | MR_ITS ---
CLINICAL HISTORY: M25.562 - Pain in left knee MR left knee without gadolinium Comparison: CR/SR - XR KNEE LT 4V - 07/30/23 10:59 EST CR - KNEE LEFT 4 VIEWS [id number] - 08/02/19 09:37 EST Findings: No fractures. No pathologic bone lesions. Moderate ill-defined T2 signal elevation within the central patella. Moderate articular cartilage loss overlying the lateral patellar facet. No joint effusion. Trace Roman's cyst. Anterior and posterior cruciate ligaments are intact. Collateral ligaments are intact. Patellar retinacula and iliotibial band are intact. No tears of the quadriceps, patellar, popliteus, or flexor tendons. There are no meniscal tears. IMPRESSION: 1. No internal derangement. 2. Presumably degenerative marrow edema within the patella with overlying articular cartilage loss. This document has been electronically signed by: Albin Gutierrez MD on 08/31/2024 15:50:15
== END 2024-08-31 08:12 | disposition home or self-care (01) ==
LOC: HO.MRI 08:11
PROVIDERS: PCP Nurse Practitioner Family; Visit Provider Nurse Practitioner Family
DX: M25.562 Pain in left knee (principal); G89.29 Other chronic pain
CPT/HCPCS: 73721

== ENCOUNTER 2024-09-22 09:19 | Outpatient (REF) | payer OTHER, SELFPAY ==
[2024-09-22 13:20] LABS: MANUAL DIFF FLAG NO
[2024-09-22 13:29] LABS: Basophils Percent Auto 0.9 % (0-2); Eosinophils Absolute Auto 0.3 X10*3/uL (0.0-0.4); Eosinophils Percent Auto 5.7 % (0-4); Hematocrit 39.3 % (37.0-47.0); Hemoglobin 13.3 g/dl (12.0-16.0); Imm Gran Abs Auto 0.01 X10*3/uL (0.00-0.03); Imm Gran Pct Auto 0.2 % (0.0-0.4); Lymphocytes Percent Auto 45.3 % (20-40); Mean Corpuscular HGB Conc 33.8 g/dl (31.0-35.0); Mean Corpuscular Hemoglobin 30.4 pg (27.0-33.0); Mean Corpuscular Volume 89.9 fL (80.0-98.0); Mean Platelet Volume 10.2 fL (9.4-12.3); Monocytes Absolute Auto 0.3 X10*3/uL (0.1-1.2); Monocytes Percent Auto 7.7 % (2-11); Neutrophils Absolute Auto 1.8 x10*3/uL (2.0-8.3); Neutrophils Percent Auto 40.2 % (45-73); Platelet Count 192 X10*3/uL (160-400); Red Blood Count 4.37 X10*6/uL (4.20-5.50); Red Cell Distribution Width 12.9 % (11.0-16.0); White Blood Count 4.4 X10*3/uL (4.8-10.8)
[2024-09-22 13:39] LABS: Alanine Aminotransferase 24 U/L (0-31); Albumin Level 3.8 g/dL (3.5-5.0); Anion Gap 9 (12-20); Aspartate Amino Transferase 26 U/L (5-31); Bilirubin Total 0.9 mg/dL (0.0-1.0); Blood Urea Nitrogen 17 mg/dL (9-16); Calcium 8.8 mg/dL (8.4-10.2); Carbon Dioxide 27 mmol/L (22-29); Chloride 111 mmol/L (96-108); Cholesterol 188 mg/dL (<200); Estimated Glomerular Filt Rate > 60; Glucose Fasting 73 mg/dL (60-99); HDL Cholesterol 67 mg/dL (>40); LDL Cholesterol Calculated 109 mg/dL (<100); Potassium 3.7 mmol/L (3.3-5.1); Sodium 143 mmol/L (135-145); Total Protein 6.7 g/dL (6.5-8.0); Triglycerides 64 mg/dL (<150)
[2024-09-22 13:54] LABS: TSH reflex Free T4 1.02 uIU/mL (0.32-4.0)
[2024-09-22 14:10] LABS: Alkaline Phosphatase 62 U/L (39-117)
== END 2024-09-22 09:20 | disposition home or self-care (01) ==
LOC: HO.HMGCLDS 09:19
PROVIDERS: PCP Nurse Practitioner Family; Visit Provider Nurse Practitioner Family
DX: Z00.00 Encounter for general adult medical examination without abnormal findings (principal); Z13.6 Encounter for screening for cardiovascular disorders
CPT/HCPCS: 36415; 80053; 80061; 84443; 85025

== ENCOUNTER 2024-10-06 14:06 | Outpatient (AMB) | payer OTHER, SELFPAY ==
[2024-10-06 14:08] VITALS: BMI 28.7
--- NOTE | 2024-10-06 14:08 | MHC.OFFVIS ---
Vital Signs 10/06/24 14:08 Height 5 ft 8 in Weight 189 lb BMI 28.7 Intake Visit Reasons: OV-Pain in left knee-sharp pain in knee cap Intake Note: Rodrigo is a 43 year old female who presents today for a follow up of her left knee OA. Patient reports unable to take NSAIDs due to bariatric surgery. She complains of increased pain in the knee. MRI done 08/31/24: IMPRESSION: 1. No internal derangement. 2. Presumably degenerative marrow edema within the patella with overlying articular cartilage loss. Allergies NSAIDS (Non-Steroidal Anti-Inflamma Adverse Reaction (Verified 08/16/24 16:09) other Soy Allergy (Unknown, Uncoded 07/23/22 16:32) Unknown HPI HPI OV-Pain in left knee-sharp pain in knee cap: Details: Rodrigo is a 43 yo F with left knee PF OA. She had an MRI which showed bony edema in the patella. She is frustrated because she loves weight lifting and especially squats but these irritate her knee. [facility] Medical History Fatty liver History of gastrectomy Respiratory tract infection due to COVID-19 virus Depression Surgical History S/P gastric sleeve procedure History of breast biopsy History of removal of skin mole History of section History of tonsillectomy Family History Father Mental health disorder Sister Mental health disorder Brother Mental health disorder Social History Housing: House Alcohol intake: never Patient Tobacco Use Status: Never used Tobacco e-Cigarette/Vaping Use: Never Used Second Hand Smoke Exposure: No service: No Current occupational status: employed 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 no effusion Office Procedures Joint Inj/Aspir; Non-Pain Clin Joint Injection/Drain Details: Injected 1 mL of Decadron and 3 mL 1% lidocaine and 3 mL of 0.25% Marcaine. Site was prepped using aseptic technique. Patient tolerated the procedure well. Shoulders, Hips, Knees, Knee Large Joint Injection : Left Knee Coding Procedure code (CPT) selection complete Results Reviewed Results Reviewed: I personally reviewed the MR images. 1. No internal derangement. 2. Presumably degenerative marrow edema within the patella with overlying articular cartilage loss. Assessment & Plan Assessment & Plan (1) Patellofemoral arthritis of left knee: Code(s): M17.12 - Unilateral primary osteoarthritis, left knee Category: Medical Plan: 43 yo F with left knee PF OA. I recommend avoiding squats and NSAIDs. I also injected her knee today. She should take it easy with squatting and she may, in the future, be able to resume similar (but maybe not identical) activities. f/u 3 mo Medications: New celecoxib (Celebrex) 200 mg PO DAILY 30 caps 1RF Coding Level of Care Code Est Pt Level 3 (87022) Diagnoses Patellofemoral arthritis of left knee M17.12 CPT Codes Shoulders, Hips, Knees, - Knee Large Joint Injection : Left Knee ([id number])
--- OUTSIDE RECORDS SUMMARY | 2024-10-06 17:18 | XMS_ITS ---
Author Organization [facility] Address [address] [place] [address] Care Team Providers Care Farmworker Grain Name Role Phone Antoni Yung Primary Care Provider Unav ailable Black, Cady Unavailable [phone] Alma Duarte Unavailable [phone] Encounters Encounter Location Date Provider Diagnosis [facility] [address] [place] [address] 07/17/2023 Alma Duarte Plan Of Treatment No Information Progress Notes * Rodrigo ALMODOVAR LDOB:1980 (43 yo F)Acc No.[id number]:07/17/2023 Progress Notes Patient:?BUSTER Rodrigo Brasehr Provider:?Alma Duarte DPM :1980???Age:42 Y???Sex:Female D ate:07/17/2023 Address:[address] [id number] Pcp:JAIR Manzanares Subjective: * Chief Complaints: * ??? * Medical History:? Objective: * Vitals:? Assessment: Plan: * Treatment: * Images: * The named appointment provid er may or may not be the originator of this progress note, and it is not deemed complete until electronically signed by the appointment provider. Sign off status: Pending * Provider:?Alma Duarte DPM Date:? Generated for Printi ng/Faadrianneg/eTransmitting on:?10/06/2024 05:17 PM EST
--- OUTSIDE RECORDS SUMMARY | 2024-10-06 17:18 | XMS_ITS ---
Author Organization [facility] Address [address] [place] [address] Care Team Providers Care B2B Sales Professional Name Role Phone Antoni Yung Primary Care Provider Unav ailable Black, Cady Unavailable [phone] REASON FOR VISIT Reschedule Encounters Encounter Location Date Provider Diagnosis [facility] [address] [place] [address] 08/05/2023 Cady Black Plan Of Treatment No Information Progress Notes * Rodrigo ALMODOVAR LDOB:1980 (42 yo F)Acc No.[id number]:08/05/2023 Patient:?Rordigo Almodovar :1980???Age:42 Y???Sex:Female Address:[address], [place] [address] * true * Date:? Generated for Printi danae/Faadrianneg/eTransmitting on:?10/06/2024 05:17 PM EST
--- OUTSIDE RECORDS SUMMARY | 2024-10-06 17:18 | XMS_ITS | Patient Health Record ---
[facility] Address [address] [facility] [place] [address] Care Team Providers Care Control Room Helper Name Role Phone Antoni Yung Primary Care Provider Unav ailable Black, Cady Unavailable [phone] Allergies Allergen (clinical drug ingredient) Drug/Non Drug [...] Insured Coverage Start Date Coverage End Date [place] [address] [place] [phone] [id number] Rodrigo Almodovar Self - patient is the insured Medical (General) History Medical History History ICD Code psoriasis/eczema chicken pox depression Anxiety Back,Hip,and Knee pain covid-19 Surgical History Surgery Date(Month/Year) 02/01/2013 hysterectomy 12/12/2020
--- OUTSIDE RECORDS SUMMARY | 2024-10-06 17:18 | XMS_ITS ---
Author Organization [facility] Address [address] [place] [address] Care Team Providers Care Turkey Roll Maker Name Role Phone Antoni Yung Primary Care Provider Unav ailable Black, Cady Unavailable [phone] Alma Duarte Unavailable [phone] Encounters Encounter Location Date Provider Diagnosis [facility] [address] [place] [address] 08/07/2023 Alma Duarte Plan Of Treatment No Information Progress Notes * Rodrigo ALMODOVAR LDOB:1980 (43 yo F)Acc No.[id number]:08/07/2023 Progress Notes Patient:?BUSTER Rodrigo Brasher Provider:?Alma Duarte DPM :1980???Age:42 Y???Sex:Female D ate:08/07/2023 Address:[address] [id number] Pcp:JAIR Manzanares Subjective: * Chief Complaints: * ??? * Medical History:? Objective: * Vitals:? Assessment: Plan: * Treatment: * Images: * The named appointment provid er may or may not be the originator of this progress note, and it is not deemed complete until electronically signed by the appointment provider. Sign off status: Pending * Provider:?Alma Duarte DPM Date:?12/2023 Generated for Gladysi danae/Carline/eTransmitting on:?10/06/2024 05:18 PM EST
== END 2024-10-06 15:11 | disposition home or self-care (01) ==
PROVIDERS: PCP Nurse Practitioner Family; Visit Provider Orthopaedic Surgery
DX: M17.12 Unilateral primary osteoarthritis, left knee (principal)
CPT/HCPCS: 20610; 99213

== ENCOUNTER → 2024-10-06 14:06 | Outpatient (BNVA) | payer OTHER, SELFPAY | PROVIDERS: PCP Nurse Practitioner Family; Visit Provider Orthopaedic Surgery | DX: M17.12 Unilateral primary osteoarthritis, left knee (principal) | CPT/HCPCS: 20610; J0665; J1100; J2003 ==

== ENCOUNTER 2024-12-12 11:07 | Outpatient (AMB) | payer OTHER, SELFPAY ==
--- NOTE | 2024-12-12 11:23 | MHC.OFFVIS ---
Intake Visit Reasons: OV - Left Knee PF OA - Last Inj 10/06/24 Intake Note: Rodrigo is a 44 year old female who presents today for a follow up of her Left knee PF OA. At her last visit she was given an Injection in the Left knee, an Rx for Celebrex and advised to avoid squats and NSAIDs. Patient reports that this last injection was helpful but has started to wear off early. She is left hand dominant. She mentions that she woke up with pain in the left shoulder. she is having pain all the time, she expains that she feels like there is a know in the posterior aspect of the shoulder and pain radiated down the shoulder blade. Denies numbnes and tingling. Allergies NSAIDS (Non-Steroidal Anti-Inflamma Adverse Reaction (Verified 08/16/24 16:09) other Soy Allergy (Unknown, Uncoded 07/23/22 16:32) Unknown HPI HPI OV - Left Knee PF OA - Last Inj 10/06/24: Details: Rodrigo comes in today 2 months after having a injection into her left knee. She has been feeling better but she has not been doing squats in the gym as much as prior and so she is not sure if that is due to the injections were her activity modification. She states the pain is present throughout many activities and she has a difficult time jogging. [facility] Medical History Fatty liver History of gastrectomy Respiratory tract infection due to COVID-19 virus Depression Surgical History S/P gastric sleeve procedure History of breast biopsy History of removal of skin mole History of section History of tonsillectomy Family History Father Mental health disorder Sister Mental health disorder Brother Mental health disorder Social History Housing: House Alcohol intake: never Patient Tobacco Use Status: Never used Tobacco e-Cigarette/Vaping Use: Never Used Second Hand Smoke Exposure: No service: No Current occupational status: employed 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 no effusion Assessment & Plan Assessment & Plan (1) Patellofemoral arthritis of left knee: Code(s): M17.12 - Unilateral primary osteoarthritis, left knee Category: Medical Plan: This is a 44-year-old woman with a history of gastrectomy who can not tolerate NSAIDs and Celebrex did not function for with left knee patellofemoral OA. Squeezes her pain and limits her ability to engage in recreational weightlifting or jogging. This is very important of the maintenance of weight loss into her mood and so she finds it very frustrated that she is unable to do this. Steroid injections have been helpful but at her age I would not continue to do these and recommend platelet rich plasma injection. I explained to her this procedure and the benefits, risks and alternatives. A referral will be placed and she will see me 3 months after the injection. Orders: Referrals Pain Management Referral M17.12 - Unilateral primary osteoarthritis, left knee Coding Level of Care Code Est Pt Level 3 (02117) Diagnoses Patellofemoral arthritis of left knee M17.12
--- OUTSIDE RECORDS SUMMARY | 2024-12-12 11:55 | XMS_ITS ---
Author Organization [facility] Address [address] [place] [address] Care Team Providers Care Home Organizer Name Role Phone Antoni Yung Primary Care Provider Unav ailable Black, Cady Unavailable [phone] Alma Duarte Unavailable [phone] Encounters Encounter Location Date Provider Diagnosis [facility] [address] [place] [address] 07/17/2023 Alma Duarte Plan Of Treatment No Information Progress Notes * Rodrigo ALMODOVAR LDOB:1980 (44 yo F)Acc No.[id number]:07/17/2023 Progress Notes Patient:?BUSTER Rodrigo Brasher Provider:?Alma Duarte DPM :1980???Age:42 Y???Sex:Female D ate:07/17/2023 Address:[address] [id number] Pcp:JAIR Manzanares Subjective: * Chief Complaints: * ??? * Medical History:? Objective: * Vitals:? Assessment: Plan: * Treatment: * Images: * The named appointment provid er may or may not be the originator of this progress note, and it is not deemed complete until electronically signed by the appointment provider. Sign off status: Pending * Provider:?Alma Duarte DPM Date:? Generated for Printi ng/Faadrianneg/eTransmitting on:?12/12/2024 11:55 AM EDT
--- OUTSIDE RECORDS SUMMARY | 2024-12-12 11:55 | XMS_ITS | Patient Health Record ---
Author Organization [facility] Address [address] [facility] [place] [address] Care Team Providers Care Skate Shop Attendant Name Role Phone Antoni Yung Primary Care Provider Unav ailable Black, Cady Unavailable [phone] Allergies Allergen (clinical drug ingredient) Drug/Non Drug [...] Insured Coverage Start Date Coverage End Date [place] [address] [place] [phone] [id number] Rodrigo Almodovar Self - patient is the insured Medical (General) History Medical History History ICD Code psoriasis/eczema chicken pox depression Anxiety Back,Hip,and Knee pain covid-19 Surgical History Surgery Date(Month/Year) 02/01/2013 hysterectomy 12/12/2020
--- OUTSIDE RECORDS SUMMARY | 2024-12-12 11:55 | XMS_ITS ---
Author Organization [facility] Address [address] [place] [address] Care Team Providers Care Icicle Machine Operator Name Role Phone Antoni Yung Primary Care Provider Unav ailable Black, Cady Unavailable [phone] Alma Duarte Unavailable [phone] Encounters Encounter Location Date Provider Diagnosis [facility] [address] [place] [address] 08/07/2023 Alma Duarte Plan Of Treatment No Information Progress Notes * Rodrigo ALMODOVAR LDOB:1980 (44 yo F)Acc No.[id number]:08/07/2023 Progress Notes Patient:?BUSTER Rodrigo Brasher Provider:?Alma Duarte DPM :1980???Age:42 Y???Sex:Female D ate:08/07/2023 Address:[address] [id number] Pcp:JAIR Manzanares Subjective: * Chief Complaints: * ??? * Medical History:? Objective: * Vitals:? Assessment: Plan: * Treatment: * Images: * The named appointment provid er may or may not be the originator of this progress note, and it is not deemed complete until electronically signed by the appointment provider. Sign off status: Pending * Provider:?Alma Duarte DPM Date:?12/2023 Generated for Gladysi danae/Carline/eTransmitting on:?12/12/2024 11:55 AM EDT
--- OUTSIDE RECORDS SUMMARY | 2024-12-12 11:55 | XMS_ITS ---
Author Organization [facility] Address [address] [place] [address] Care Team Providers Care Endband Cutter Hand Name Role Phone Antoni Yung Primary Care Provider Unav ailable Black, Cady Unavailable [phone] REASON FOR VISIT Reschedule Encounters Encounter Location Date Provider Diagnosis [facility] [address] [place] [address] 08/05/2023 Cady Black Plan Of Treatment No Information Progress Notes * Rodrigo ALMODOVAR LDOB:1980 (42 yo F)Acc No.[id number]:08/05/2023 Patient:?Rodrigo Almodovar :1980???Age:42 Y???Sex:Female Address:[address], [place] [address] * true * Date:? Generated for Printi ng/Faxing/eTransmitting on:?12/12/2024 11:55 AM EDT
== END 2024-12-12 12:10 | disposition home or self-care (01) ==
LOC: HO.HOS 11:08
PROVIDERS: PCP Nurse Practitioner Family; Visit Provider Orthopaedic Surgery
DX: M17.12 Unilateral primary osteoarthritis, left knee (principal)
CPT/HCPCS: 99213

== ENCOUNTER → 2025-01-05 07:05 | Outpatient (BNVA) | payer OTHER, SELFPAY | PROVIDERS: PCP Nurse Practitioner Family; Visit Provider Nurse Practitioner Family ==

== ENCOUNTER 2025-01-26 06:08 | Outpatient (REF) | payer OTHER, SELFPAY ==
--- NOTE | ~2025-01-26 | FL_ITS ---
EXAMINATION: FL GUIDANCE ONLY HISTORY: M17.12 - Unilateral primary osteoarthritis, left knee COMPARISON: Correlation is made with plain films of the left knee dated 07/22/2023. TECHNIQUE: Fluoroscopy time: 0.1 minutes. Cumulative Dose: 0.183 mGy. DAP: 0.35631 mGym2 Images: 2. FINDINGS: AP and lateral fluoroscopic spot films of the left knee demonstrates a needle and contrast material in the joint space. FL/FL guidance in treatment room IMPRESSION: Fluoroscopy during procedure. Please see procedure report for additional information. Electronically signed by: Matthew Zavala MD 01/26/2025 11:45 AM EDT
--- OUTSIDE RECORDS SUMMARY | 2025-01-26 06:10 | XMS_ITS | Patient Health Record ---
Author Organization [facility] Address [address] [facility] [place] [address] Care Team Providers Care Level Glass Vial Filler Name Role Phone Antoni Yung Primary Care Provider Unav ailable Black, Cady Unavailable [phone] Allergies Allergen (clinical drug ingredient) Drug/Non Drug [...] 50 MG TAKE 1 TABLET BY AASHISH AT BEDTIME NEEDED FOR INSOMNIA. Oral; Duration: 90 Days Active Feldene 20 MG 1 capsule with food Orally Once a day; Duration: 30 day(s) Not-Taking dexAMETHasone 4 MG 1 tablet Orally Once a day; Duration: 30 day(s) Not-Taking Escitalopram Oxalate 20 MG TAKE 1 TABLET BY MOUTH DAILY. Oral; Duration: 90 Days Active Feldene 20 MG 1 capsule with food Orally Once a day; Duration: 30 day(s) 06/01/2023 Active Night Splint AFO - L1930 1 wear at rest; Duration: 30 days Active Social History Tobacco Use: [...] Insured Coverage Start Date Coverage End Date [place] [address] [place] [phone] [id number] Rodrigo Almodovar Self - patient is the insured Medical (General) History Medical History History ICD Code psoriasis/eczema chicken pox depression Anxiety Back,Hip,and Knee pain covid-19 Surgical History Surgery Date(Month/Year) 02/01/2013 hysterectomy 12/12/2020
== END 2025-01-26 06:09 | disposition home or self-care (01) ==
LOC: CF 06:08
PROVIDERS: Visit Provider Internal Medicine
DX: Z13.89 Encounter for screening for other disorder (principal)

== ENCOUNTER 2025-01-26 09:56 | Outpatient (AMB) | payer SELFPAY ==
[2025-01-26 09:58] VITALS: BP 112/73; PULSE 83; RESP 16; O2SAT 99; BMI 28.7
--- NOTE | 2025-01-26 09:58 | MHC.OFFVIS ---
Vital Signs 01/26/25 09:58 01/26/25 10:02 Height 5 ft 8 in 5 ft 8 in Weight 189 lb 189 lb BMI 28.7 28.7 BP 112/73 120/72 Blood Pressure Location Lt brachial Rt brachial Position Sitting Sitting Respiration 16 16 Pulse 83 64 Pulse Source Pulse Oximeter Pulse Oximeter Pulse Oximetry (%) 99 100 Oxygen Delivery Method Room Air Room Air Intake Visit Reasons: Left knee PRP Allergies NSAIDS (Non-Steroidal Anti-Inflamma Adverse Reaction (Verified 08/16/24 16:09) other Soy Allergy (Unknown, Uncoded 07/23/22 16:32) Unknown HPI HPI Left knee PRP: Details: Patient presents for scheduled procedure. Denies any recent cough, cold, infection, fever or other significant changes in medical history since last office visit. REPLACED BY [facility] Medical History Fatty liver History of gastrectomy Respiratory tract infection due to COVID-19 virus Depression Surgical History S/P gastric sleeve procedure History of breast biopsy History of removal of skin mole History of section History of tonsillectomy Family History Father Mental health disorder Sister Mental health disorder Brother Mental health disorder Social History Housing: House Alcohol intake: never Patient Tobacco Use Status: Never used Tobacco e-Cigarette/Vaping Use: Never Used Second Hand Smoke Exposure: No service: No Current occupational status: employed 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 An 18 gauge butterfly needle was used to obtain 50 mL of whole blood from the right antecubital fossa. This was then mixed with 9 mL anticoagulant citrate dextrose solution. The 60 mL mixture was counter balanced to within 1 g and spun at 3500 rpm for 10 minutes. Platelet poor plasma was then drawn using a bench top press model. 6 mL of slightly leukocyte rich PRP was isolated in a 10 cc syringe and injected in the the left knee after needle placement confirming an arthrogram. Primary Site: left knee Prep: site was prepped using sterile technique Approach Used: medial parapatellar (with arthrogram) Procedure: The patient tolerated the procedure well XCELL Platelet Plasma - 0232T 60 mL All charges added?: Procedure code (CPT) selection complete Assessment & Plan Assessment & Plan (1) Osteoarthritis of left knee: Code(s): M17.12 - Unilateral primary osteoarthritis, left knee Category: Medical Plan Patient is status post left knee intra-articular PRP injection. Patient tolerated procedure well and was discharged home in stable condition with discharge instructions. All questions were answered. In case of insufficient relief from today's intervention, we will plan for ultrasound guided PRP injection of the PF bursa. Orders: Orders FL guidance in treatment room 01/26/25 M17.12 - Unilateral primary osteoarthritis, left knee AMB Platelet Rich Plasma (PRP) Injection 01/26/25 M17.12 - Unilateral primary osteoarthritis, left knee Coding Level of Care Code Procedure Only Diagnoses Osteoarthritis of left knee M17.12 CPT Codes XCELL Kit 60mL ([id number])
[2025-01-26 10:02] VITALS: BP 120/72; PULSE 64; RESP 16; O2SAT 100; BMI 28.7
== END 2025-01-26 11:14 | disposition home or self-care (01) ==
LOC: HO.PMCPRC 09:56
PROVIDERS: PCP Nurse Practitioner Family; Visit Provider Internal Medicine
DX: M17.12 Unilateral primary osteoarthritis, left knee (principal)
CPT/HCPCS: 0232T

== ENCOUNTER 2025-03-16 14:53 | Outpatient (AMB) | payer OTHER, SELFPAY ==
--- NOTE | 2025-03-16 14:56 | MHC.OFFVIS ---
Intake Visit Reasons: OV - Left Knee PF OA - PRP 01/26/25 Intake Note: Rodrigo is a 44 year old female who presents today for a follow up of her Left knee PF OA s/p Left Knee PRP injection 01/26/25. Patient reports that she did not she found some relief in the first week after the injection was done but this relief has tapered off since then . Allergies NSAIDS (Non-Steroidal Anti-Inflamma Adverse Reaction (Verified 08/16/24 16:09) other Soy Allergy (Unknown, Uncoded 07/23/22 16:32) Unknown HPI HPI OV - Left Knee PF OA - PRP 01/26/25: Details: Rodrigo is a 44 year old female who presents today for a follow up of her Left knee PF OA s/p Left Knee PRP injection 01/26/25. Patient reports that she did not she found some relief in the first week after the injection was done but this relief has tapered off since then . She has know PF chondromalacia and pain with certain weight lifting activities. [facility] Medical History Fatty liver History of gastrectomy Respiratory tract infection due to COVID-19 virus Depression Surgical History S/P gastric sleeve procedure History of breast biopsy History of removal of skin mole History of section History of tonsillectomy Family History Father Mental health disorder Sister Mental health disorder Brother Mental health disorder Social History Housing: House Alcohol intake: never Patient Tobacco Use Status: Never used Tobacco e-Cigarette/Vaping Use: Never Used Second Hand Smoke Exposure: No service: No Current occupational status: employed 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 Assessment & Plan Assessment & Plan (1) Patellofemoral arthritis of left knee: Code(s): M17.12 - Unilateral primary osteoarthritis, left knee Category: Medical Plan: PF OA left knee. PRP and steroids minimally helpful. I reviewed her MRI with her. The patella shows bony edema. This may improve over time and I would modify my activity to manage symptoms. No additional intervention recommended at this time. May f/u if there are changes. Coding Level of Care Code Est Pt Level 3 (67140) Diagnoses Patellofemoral arthritis of left knee M17.12
--- OUTSIDE RECORDS SUMMARY | 2025-03-16 15:30 | XMS_ITS | Patient Health Record ---
Author [facility] Address [address] [facility] [place] [address] Care Team Providers Care Pattern Drafter Name Role Phone Antoni Yung Primary Care Provider Unav ailable Black, Cady Unavailable [phone] Allergies Allergen (clinical drug ingredient) Drug/Non Drug [...] Insured Coverage Start Date Coverage End Date [place] [address] [place] [phone] [id number] Rodrigo Almodovar Self - patient is the insured Medical (General) History Medical History History ICD Code psoriasis/eczema chicken pox depression Anxiety Back,Hip,and Knee pain covid-19 Surgical History Surgery Date(Month/Year) 02/01/2013 hysterectomy 12/12/2020
--- OUTSIDE RECORDS SUMMARY | 2025-03-16 15:30 | XMS_ITS | Encounter Summary ---
Author Organization [facility] Address [address] [place] [phone] Phone Care Team Providers Care Damage Cutter Name Role Phone Cesilia Ivey CLINICAL EDUCATION COORDINATOR Primary Care Provider Antoni Gandara CLINICAL EDUCATION COORDINATOR Primary Care Provider + Encounter Details Date Type Department Care Team (Late st Contact Info) Description 02/02/2020 Procedure Pass [place] Admitting Dept - Virtual Department [address] [place] [address] Social History Tobacco Use Types Packs/Day Years Used Date Smoking Tobacco: Never Smokeless Tobacco: Never Alcohol Use Standard Drinks/Week Comments Yes 0 (1 standard drink = 0.6 oz pur e alcohol) 2 a week Comments No Sex and Gender Information Value Date Recorded Sex Assigned at Female 08/30/2017 1:36 PM EST Legal Sex Female 9:20 PM EDT Gender Identity Female 08/30/2017 1:36 PM EST Sexual Orientation Straight 08/30/2017 1: 36 PM EST 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 Not on file Not on file documented as of this encounter Plan of Treatment Not on file documented as of this encounter Visit Diagnoses Not on filedocumented in this encounter Care Teams Damage Cutter Relationship Specialty Start Date End Date Cesilia Ivey NP [address] [place] [address] [place] [address] [email or web address] PCP - General Family Medicine 06/24/17 Antoni Gandara NP [facility] [place] [address] PCP - General Family Medicine 10/24/20 documented as of this encounter Additional Source Comments The information contained in this document represents components of the legal health record. It is not the complete legal health record.[facility]
== END 2025-03-16 16:01 | disposition home or self-care (01) ==
LOC: HO.HOS 14:54
PROVIDERS: PCP Nurse Practitioner Family; Visit Provider Orthopaedic Surgery
DX: M17.12 Unilateral primary osteoarthritis, left knee (principal)
CPT/HCPCS: 99213